=== PATIENT | male | born 1995 | race Caucasian/White ===

== ENCOUNTER 2016-10-30 23:00 | Emergency (ER) | payer SELFPAY ==
[~2016-10-30] VITALS: Ht 170.2 cm; Wt 75.0 kg
[~2016-10-30 23:00] MED LIST: NAPR250T2 PO
[2016-10-31] MEDS ORDERED: ALBUTEROL SULFATE 2.5 MG/0.5 ML NEB SOLUTION NEB ONE (00:15)
[2016-10-31] MEDS ORDERED: OSELTAMIVIR PHOSPHATE 75 MG CAPSULE PO ONE (00:15)
[2016-10-31] MEDS ORDERED: IBUPROFEN 800 MG TABLET PO ONE (00:15)
[2016-10-31] MEDS ORDERED: 0.9% SODIUM CHLORIDE 5 ML NEB SOLUTION NEB ONE (00:28)
[2016-10-31 00:48] VITALS: BP 135/80
== END 2016-10-31 01:02 | disposition home or self-care (01) ==
LOC: EMS 23:03
DX: J11.1 Influenza due to unidentified influenza virus with other respiratory manifestations (principal)
CPT/HCPCS: 71020; 94640; 99284; J7613